=== PATIENT | female | born 1980 | race Two or more races ===

== ENCOUNTER 2020-03-22 23:20 | Inpatient (IN) | payer OTHER ==
[~2020-03-22] VITALS: Ht 165.1 cm; Wt 72.6 kg
[~2020-03-22 23:20] MED LIST: AVALIDE 150-12.1 TA1 PO; [UNRECOGNIZED DRUG - OTHER] PO
== END 2020-03-25 12:51 | disposition home or self-care (01) | DRG 812 ==
LOC: ER 23:20 → MEDI 03-23 12:11 → MEDJ 03-23 12:11 → MEDI 03-25 12:51
PROVIDERS: ADMIT Specialist/Technologist, Other Nephrology; ATTEND Specialist/Technologist, Other Nephrology
PROC: 30233N1 Transfusion of Nonautologous Red Blood Cells into Peripheral Vein, Percutaneous Approach (ICD-10-PCS; principal; 2020-03-23)
PROC: BW40ZZZ Ultrasonography of Abdomen (ICD-10-PCS; 2020-03-23)
PROC: BU4CZZZ Ultrasonography of Uterus and Ovaries (ICD-10-PCS; 2020-03-23)
DX: D62 Acute posthemorrhagic anemia (principal); N93.8 Other specified abnormal uterine and vaginal bleeding; Z20.828 Contact with and (suspected) exposure to other viral communicable diseases

== ENCOUNTER 2020-06-26 10:08 | Outpatient (CLI) | payer OTHER | END 2020-06-26 10:23 | disposition home or self-care (01) | LOC: MAMO-SONO 10:08 → SONOGRAMA 10:15 → MAMO-SONO 10:23 | PROVIDERS: ATTEND Specialist | DX: Z12.31 Encounter for screening mammogram for malignant neoplasm of breast (principal); N63.0 Unspecified lump in unspecified breast; N84.0 Polyp of corpus uteri; N83.292 Other ovarian cyst, left side ==

== ENCOUNTER 2020-07-12 08:02 | Outpatient (CLI) | payer OTHER | END 2020-07-12 08:09 | disposition home or self-care (01) | LOC: SONOGRAMA 08:02 | PROVIDERS: ATTEND Pathology Anatomic Pathology & Clinical Pathology | DX: N63.20 Unspecified lump in the left breast, unspecified quadrant (principal) ==

== ENCOUNTER 2020-08-17 05:40 | Day surgery (SDC) | payer OTHER | END 2020-08-17 17:25 | disposition home or self-care (01) | LOC: CIR.AMB 05:40 | PROVIDERS: ATTEND Specialist | DX: N84.0 Polyp of corpus uteri (principal); Z20.822 Contact with and (suspected) exposure to COVID-19 ==

== ENCOUNTER 2020-08-29 15:12 | Emergency (ER) | payer OTHER ==
[~2020-08-29] VITALS: Ht 167.6 cm; Wt 72.6 kg
[2020-08-29] MEDS ORDERED: BACTRIM DS TAB1 EACH PO (22:37)
== END 2020-08-29 22:44 | disposition home or self-care (01) ==
LOC: ER 15:12
DX: R42 Dizziness and giddiness (principal); R20.0 Anesthesia of skin; R00.2 Palpitations; N39.0 Urinary tract infection, site not specified

== ENCOUNTER 2021-05-02 13:16 | Emergency (ER) | payer OTHER ==
[~2021-05-02] VITALS: Ht 165.1 cm; Wt 71.2 kg
[~2021-05-02 13:16] MED LIST changes: +BACTRIM DS TAB1 EACH PO
[2021-05-02] MEDS ORDERED: BACTRIM 400-801 EACH PO (18:21)
== END 2021-05-02 18:36 | disposition home or self-care (01) ==
LOC: ER
DX: N30.00 Acute cystitis without hematuria (principal); B96.29 Other Escherichia coli [E. coli] as the cause of diseases classified elsewhere

== ENCOUNTER 2021-05-08 20:50 | Emergency (ER) | payer OTHER ==
[~2021-05-08] VITALS: Ht 165.1 cm; Wt 71.2 kg
[~2021-05-08 20:50] MED LIST changes: +BACTRIM 400-801 EACH PO
== END 2021-05-08 22:46 | disposition home or self-care (01) ==
LOC: ER 20:50
DX: R00.2 Palpitations (principal); R07.89 Other chest pain; R20.2 Paresthesia of skin; F41.9 Anxiety disorder, unspecified

== ENCOUNTER 2023-03-19 15:02 | Emergency (ER) | payer OTHER ==
[~2023-03-19] VITALS: Ht 160 cm; Wt 68.9 kg
[2023-03-19 17:45] LABS: HEMATOCRIT 32.8 % (36.0-45.00); HEMOGLOBIN 10.8 g/dL (12.0-15.00); MEAN CELL VOLUME 85.4 fL (80.00-100.00); MEAN CORPUSCULAR HGB CONC 32.8 g/dl (32.0-36.0); PLATELET COUNT 300 K/uL (150-450); RED BLOOD COUNT 3.84 M/uL (4.00-6.00)
[2023-03-19 18:07] LABS: CALCIUM 9.8 mg/dL (8.5-10.1); CREATININE SERUM 0.75 mg/dL (0.55-1.02); GFR 84.34; POTASSIUM 4.1 mEq/L (3.5-5.1)
== END 2023-03-19 18:43 | disposition home or self-care (01) ==
LOC: ER
PROVIDERS: General Practice
DX: M94.0 Chondrocostal junction syndrome [Tietze] (principal)

== ENCOUNTER → 2024-06-04 | Emergency (ER) | payer OTHER ==
[~2024-06-04] VITALS: Ht 165.1 cm; Wt 71.2 kg
[~2024-06-04] MED LIST changes: +0.9 % SODIUM CHLORIDE 500 ML IV STA; +FAMOTIDINE/PF 20 MG/2 ML VIAL ONE; +FAMOtidine 10 MG/ML (4ML VIAL) IV PUSH STA; +HYOSCYAMINE SULFATE 0.125 MG TAB.SUBL ONE; +HYOSCYAMINE SULFATE 0.125 MG TAB.SUBL SL ONE
[2024-06-04 04:20] LABS: HEMATOCRIT 37.3 % (36.0-45.00); HEMOGLOBIN 12.5 g/dL (12.0-15.00); MEAN CELL VOLUME 90.3 fL (80.00-100.00); MEAN CORPUSCULAR HEMOGLOBIN 30.3 pg (27.00-32.0); MEAN CORPUSCULAR HGB CONC 33.5 g/dl (32.0-36.0); PLATELET COUNT 301 K/uL (150-450); RED BLOOD COUNT 4.13 M/uL (4.00-6.00); RED CELL DISTRIBUTION WIDTH 14.2 % (11.5-14.5)
[2024-06-04 05:11] LABS: CALCIUM 9.4 mg/dL (8.5-10.1); CREATININE SERUM 0.74 mg/dL (0.55-1.02); GFR 85.26; POTASSIUM 4.04 mEq/L (3.5-5.1)
== END | disposition home or self-care (01) ==
LOC: ER 02:14
DX: K29.70 Gastritis, unspecified, without bleeding (principal); Z88.6 Allergy status to analgesic agent

== ENCOUNTER 2025-02-02 12:49 | Emergency (ER) | payer OTHER ==
[~2025-02-02] VITALS: Ht 165.1 cm; Wt 68.9 kg
[~2025-02-02 12:49] MED LIST changes: -0.9 % SODIUM CHLORIDE 500 ML IV STA; -FAMOTIDINE/PF 20 MG/2 ML VIAL ONE; -FAMOtidine 10 MG/ML (4ML VIAL) IV PUSH STA; -HYOSCYAMINE SULFATE 0.125 MG TAB.SUBL ONE; -HYOSCYAMINE SULFATE 0.125 MG TAB.SUBL SL ONE
[2025-02-02] MEDS ORDERED: COZAAR25 MG (13:19)
[2025-02-02] MEDS ORDERED: HYDROCHLOROTH12.5 MG (13:19)
[2025-02-02] MEDS ORDERED: DEXAMETHASONE SODIUM PHOSPHATE 4 MG/ML VIAL IV ONE (14:30)
[2025-02-02] MEDS ORDERED: ACETAMINOPHEN 500 MG GEL..CAP PO ONE ×2 (14:30→14:32)
[2025-02-02] MEDS ORDERED: ENALAPRILAT DIHYDRATE 1.25 MG/ML VIAL IV ONE ×2 (14:30→14:32)
[2025-02-02] MEDS ORDERED: DEXAMETHASONE SODIUM PHOSPHATE 4 MG/ML VIAL ONE (14:32)
[2025-02-02 15:19] LABS: BASO % 0.2 % (0.1-1.2); EOS # 0.12 (0.04-0.54); EOS % 1.4 % (0.7-7.0); LYMPH # 2.47 (1.18-3.74); LYMPH % 28.9 % (19.3-53.1); MEAN PLATELET VOLUME 9.10 fl (9.4-12.4); MONO # 0.36 (0.24-0.82); MONO % 4.2 % (4.7-12.5); NEUT # 5.56 (1.56-6.13); NEUT % 65.1 % (34.0-71.1); RED CELL DISTRIBUTION WIDTH 14.6 % (11.6-14.4)
[2025-02-02 15:36] LABS: INR 1.04
[2025-02-02 15:45] LABS: ALT/SGPT 19.0 U/L (12-78); AST/SGOT 16.0 U/L (15-37); BILIRUBIN TOTAL 0.28 mg/dL (0.3-1.2); BUN CREA RATIO 6.0 (7.0-25.0); CREATININE SERUM 0.78 mg/dL (0.55-1.02); GFR 80.23; GLOBULINA 4.3 G/DL (2.4-3.5); GLUCOSE FASTING 110.0 mg/dL (65-100); OSMOLALITY SERUM 275.0 MOSM/KG (275-295)
[2025-02-02 16:42] LABS: URINE APPEARANCE Clear; URINE BILIRRUBIN Negative (NEGATIVE); URINE BLOOD Small; URINE COLOR Yellow; URINE GLUCOSE Negative (NEGATIVE); URINE KETONE Negative (NEGATIVE); URINE LEUKOCYTE Trace; URINE NITRATE Negative; URINE PROTEIN Negative (NEGATIVE); URINE UROBILINOGEN 0.2 E.U./dl
[2025-02-02 16:43] LABS: URINE EPITHELIAL CELLS 7.5 uL (0.0-38.8); URINE RBC 6.1 uL (0.0-20.8); URINE WBC 19.5 uL (0.0-23.2)
[2025-02-02 18:01] LABS: URINE BACTERIA > 9821.5 uL (0.0-1933); URINE CAST 0.00 uL (0.0-1.40)
== END 2025-02-02 18:25 | disposition home or self-care (01) ==
LOC: ER 12:50
DX: I10 Essential (primary) hypertension (principal); R04.0 Epistaxis; Z88.6 Allergy status to analgesic agent
CPT/HCPCS: 70450; 96365; 99283; J1100; J3490

== ENCOUNTER → 2025-03-31 | Emergency (ER) | payer OTHER ==
[~2025-03-31] VITALS: Ht 165.1 cm; Wt 68.9 kg
[~2025-03-31] MED LIST changes: +0.9 % SODIUM CHLORIDE 1,000 ML IV ONE; +CEFTRIAXONE SODIUM 1,000 MG VIAL IV ONE; +CEFTRIAXONE SODIUM 1,000 MG VIAL ONE; +COZAAR25 MG; +HYDROCHLOROTH12.5 MG
[2025-03-31 15:04] LABS: BASO % 0.4 % (0.1-1.2); EOS # 0.11 (0.04-0.54); EOS % 1.2 % (0.7-7.0); LYMPH # 1.98 (1.18-3.74); LYMPH % 22.2 % (19.3-53.1); MEAN PLATELET VOLUME 9.50 fl (9.4-12.4); MONO # 0.28 (0.24-0.82); MONO % 3.1 % (4.7-12.5); NEUT # 6.49 (1.56-6.13); NEUT % 72.8 % (34.0-71.1); RED CELL DISTRIBUTION WIDTH 14.4 % (11.6-14.4)
[2025-03-31 15:23] LABS: INR 1.02
[2025-03-31 15:55] LABS: ALT/SGPT 20.0 U/L (12-78); AST/SGOT 15.0 U/L (15-37); BILIRUBIN TOTAL 0.36 mg/dL (0.3-1.2); BUN CREA RATIO 8.0 (7.0-25.0); CREATININE SERUM 0.61 mg/dL (0.55-1.02); GFR 106.06; GLOBULINA 4.2 G/DL (2.4-3.5); GLUCOSE FASTING 120.0 mg/dL (65-100); OSMOLALITY SERUM 283.0 MOSM/KG (275-295)
[2025-03-31 18:07] LABS: URINE APPEARANCE Clear; URINE BILIRRUBIN Negative (NEGATIVE); URINE BLOOD Moderate; URINE COLOR Yellow; URINE GLUCOSE Negative (NEGATIVE); URINE KETONE Negative (NEGATIVE); URINE LEUKOCYTE Negative; URINE NITRATE Positive; URINE PROTEIN Negative (NEGATIVE); URINE UROBILINOGEN 0.2 E.U./dl
[2025-03-31 18:12] LABS: URINE EPITHELIAL CELLS 6.1 uL (0.0-38.8); URINE RBC 37.1 uL (0.0-20.8); URINE WBC 26.6 uL (0.0-23.2)
[2025-03-31 18:17] LABS: URINE BACTERIA > 9821.5 uL (0.0-1933); URINE CAST 0.14 uL (0.0-1.40)
== END | disposition designated cancer center or children's hospital (05) ==
LOC: ER 12:10
PROVIDERS: General Practice
DX: R53.1 Weakness (principal); Z88.6 Allergy status to analgesic agent; R42 Dizziness and giddiness; R29.90 Unspecified symptoms and signs involving the nervous system; I10 Essential (primary) hypertension